=== PATIENT | male | born 1965 | race Caucasian/White ===

== ENCOUNTER → 2021-10-02 | Outpatient (CLI) | payer MEDICAID ==
[~2021-10-02] MED LIST: ASPI-1497 PO; ATOR20TA PO; DICY20TA11 PO; LISI10TA26 PO; METF-415 PO; NAPR500T7 PO
== END | disposition home or self-care (01) ==
LOC: LAB 09:19
PROVIDERS: ATTEND Surgery
DX: Z01.812 Encounter for preprocedural laboratory examination (principal); Z20.822 Contact with and (suspected) exposure to COVID-19
CPT/HCPCS: 87426

== ENCOUNTER 2021-10-06 05:34 | Inpatient (IN) | payer MEDICAID ==
[~2021-10-06] VITALS: Ht 165.1 cm; Wt 86.2 kg
[2021-10-06] MEDS ORDERED: SKIN ADHESIVE 0.7 GM EA TOP ONE (06:33)
[2021-10-06] MEDS ORDERED: BUPIVACAINE HCL 0.5% (5MG/ML) 50ML ONE (06:34)
[2021-10-06] MEDS ORDERED: ROCURONIUM BROMIDE 10MG/ML VIAL 5ML IV ONE (07:29)
[2021-10-06] MEDS ORDERED: PROPOFOL 200MG/20ML VIAL IV ONE (07:29)
[2021-10-06] MEDS ORDERED: FENTANYL CITRATE/PF 50MCG/ML 2ML VIAL ONE ×2 (07:29→08:54)
[2021-10-06] MEDS ORDERED: MIDAZOLAM HCL 2 MG/2 ML VIAL ONE (07:31)
[2021-10-06] MEDS ORDERED: METRONIDAZOLE 500 MG PREMIX 100 ML IV ONE (07:46)
[2021-10-06] MEDS ORDERED: PHENYLEPHRINE HCL 10 MG/ML 1ML (IV VIAL) IV ONE (07:46)
[2021-10-06] MEDS ORDERED: GLYCOPYRROLATE 0.2 MG/ML 2ML VIAL ONE (08:42)
[2021-10-06] MEDS ORDERED: DIPHENHYDRAMINE INJ IV PRN (08:45)
[2021-10-06] MEDS ORDERED: METRONIDAZOLE 500 MG PREMIX 100 ML IV SCH (08:45)
[2021-10-06] MEDS ORDERED: ONDANSETRON HCL 4MG/2ML INJ IV PRN (08:45)
[2021-10-06] MEDS ORDERED: ONDANSETRON INJ IV PRN (08:45)
[2021-10-06] MEDS ORDERED: NALOXONE INJ IV PRN (08:45)
[2021-10-06] MEDS ORDERED: MORPHINE SULFATE 2 MG/ML CPJ (NOT FOR IM USE) IV PRN ×2 (08:45)
[2021-10-06] MEDS ORDERED: BUPIVACAINE HCL 0.5% 125 ML in ON-Q PM012 DRUG DELIV DEVICE 1 EA IR ONE (09:00)
[2021-10-06] MEDS: HYDROMORPHONE PCA 10MG/50ML IV PRN (09:06)
[2021-10-06] MEDS ORDERED: NALOXONE HCL 0.4MG/ML VIAL IV PRN (09:15)
[2021-10-06] MEDS ORDERED: ONDANSETRON HCL 4MG/2ML INJ IV NR (09:45)
[2021-10-06] MEDS ORDERED: FENTANYL CITRATE/PF 50MCG/ML 2ML VIAL IV PRN (09:45)
[2021-10-06] MEDS ORDERED: KETOROLAC 30MG/ML VIAL IV NR (09:45)
[2021-10-06] MEDS: DEXT 5%/0.45% NACL KCL 20MEQ/L 1,000 ML IV SCH ×2 (10:20→22:16)
[2021-10-06 12:05] VITALS: BP 100/67
[2021-10-06 12:10] VITALS: BP 100/67
[2021-10-06 13:00] VITALS: BP 100/67
[2021-10-06] MEDS: CEFAZOLIN 1000MG PREMIX 50 ML IV SCH ×2 (14:55→22:10)
[2021-10-06 16:00] VITALS: BP 110/99
[2021-10-06] MEDS: METRONIDAZOLE 500 MG PREMIX 100 ML IV SCH ×2 (16:56→23:36)
[2021-10-06 20:00] VITALS: BP 107/68
[2021-10-06] MEDS: FAMOTIDINE 20MG/2ML VIAL IV SCH (21:00)
[2021-10-07] VITALS: BP 111/75
[2021-10-07 04:00] VITALS: BP 109/77
[2021-10-07] MEDS: CEFAZOLIN 1000MG PREMIX 50 ML IV SCH ×2 (06:07→14:06)
[2021-10-07] MEDS: DEXT 5%/0.45% NACL KCL 20MEQ/L 1,000 ML IV SCH ×2 (06:07→13:16)
[2021-10-07 08:00] VITALS: BP 105/72
[2021-10-07] MEDS: METRONIDAZOLE 500 MG PREMIX 100 ML IV SCH (09:39)
[2021-10-07] MEDS: FAMOTIDINE 20MG/2ML VIAL IV SCH ×2 (09:40→20:25)
[2021-10-07] MEDS: HYDROMORPHONE PCA 10MG/50ML IV PRN (11:08)
[2021-10-07 12:00] VITALS: BP 104/77
[2021-10-07 16:00] VITALS: BP 112/76
[2021-10-07 20:00] VITALS: BP 122/77
[2021-10-08] VITALS: BP 110/77
[2021-10-08] MEDS: DEXT 5%/0.45% NACL KCL 20MEQ/L 1,000 ML IV SCH ×3 (01:29→20:49)
[2021-10-08 04:00] VITALS: BP 119/76
[2021-10-08 08:00] VITALS: BP 118/77
[2021-10-08] MEDS: FAMOTIDINE 20MG/2ML VIAL IV SCH ×2 (08:53→20:49)
[2021-10-08 12:00] VITALS: BP 118/68
[2021-10-08 16:00] VITALS: BP 113/78
[2021-10-08 20:00] VITALS: BP 111/81
[2021-10-09] VITALS: BP 115/80
[2021-10-09 04:00] VITALS: BP 119/75
[2021-10-09 08:00] VITALS: BP 110/80
[2021-10-09] MEDS: FAMOTIDINE 20MG/2ML VIAL IV SCH ×2 (09:37→22:17)
[2021-10-09] MEDS: DEXT 5%/0.45% NACL KCL 20MEQ/L 1,000 ML IV SCH ×2 (09:37→17:49)
[2021-10-09 12:00] VITALS: BP 112/87
[2021-10-09 16:00] VITALS: BP 116/86
[2021-10-09 20:00] VITALS: BP 113/75
[2021-10-10] VITALS: BP 109/69
[2021-10-10 04:00] VITALS: BP 111/75
[2021-10-10] MEDS: DEXT 5%/0.45% NACL KCL 20MEQ/L 1,000 ML IV SCH ×2 (05:28→16:22)
[2021-10-10] MEDS: FAMOTIDINE 20MG/2ML VIAL IV SCH ×2 (09:07→22:30)
[2021-10-10 12:00] VITALS: BP 117/74
[2021-10-10 16:00] VITALS: BP 121/76
[2021-10-10 20:00] VITALS: BP 115/75
[2021-10-11] VITALS: BP 119/65
[2021-10-11] MEDS: DEXT 5%/0.45% NACL KCL 20MEQ/L 1,000 ML IV SCH ×4 (00:29→22:30)
[2021-10-11] MEDS: HYDROMORPHONE PCA 10MG/50ML IV PRN (00:30)
[2021-10-11 04:00] VITALS: BP 125/76
[2021-10-11] MEDS: FAMOTIDINE 20MG/2ML VIAL IV SCH ×2 (08:15→22:26)
[2021-10-11 20:00] VITALS: BP 127/80
[2021-10-12 00:01] VITALS: BP 117/72
[2021-10-12 04:00] VITALS: BP 118/79
[2021-10-12] MEDS: DEXT 5%/0.45% NACL KCL 20MEQ/L 1,000 ML IV SCH (05:35)
[2021-10-12 08:00] VITALS: BP 118/72
[2021-10-12] MEDS: FAMOTIDINE 20MG/2ML VIAL IV SCH ×2 (08:57→20:32)
[2021-10-12 12:00] VITALS: BP 114/75
[2021-10-12 16:03] VITALS: BP 124/79
[2021-10-12 20:00] VITALS: BP 114/70
[2021-10-13] VITALS: BP 110/73
[2021-10-13] MEDS: DEXT 5%/0.45% NACL KCL 20MEQ/L 1,000 ML IV SCH (03:06)
[2021-10-13 04:00] VITALS: BP 115/72
[2021-10-13 08:00] VITALS: BP 105/73
[2021-10-13] MEDS: FAMOTIDINE 20MG/2ML VIAL IV SCH (08:44)
[2021-10-13 09:48] VITALS: BP 105/73
== END 2021-10-13 11:31 | disposition home or self-care (01) | DRG 231 ==
LOC: OR 05:34 → 6EST 12:30
PROVIDERS: ADMIT Surgery; ATTEND Surgery
PROC: 0DBE0ZZ Excision of Large Intestine, Open Approach (ICD-10-PCS; principal; 2021-10-06)
DX: Z43.3 Encounter for attention to colostomy (principal); K66.0 Peritoneal adhesions (postprocedural) (postinfection); Z90.49 Acquired absence of other specified parts of digestive tract
CPT/HCPCS: 82962; 88307; 97161; J0690; J1170; J2250; J2370; J2704; J3010; J3490